=== PATIENT | male | born 1990 | race Caucasian/White ===

== ENCOUNTER 2021-10-07 15:20 | Emergency (ER) | payer BC, MEDICAID ==
[~2021-10-07] VITALS: Ht 170.2 cm; Wt 80.0 kg
[2021-10-07] MEDS ORDERED: ASPI-1153 PO (15:59)
[2021-10-07 18:32] VITALS: BP 126/74
== END 2021-10-07 18:34 | disposition home or self-care (01) ==
LOC: ER 15:20
DX: J06.9 Acute upper respiratory infection, unspecified (principal); Z20.822 Contact with and (suspected) exposure to COVID-19
CPT/HCPCS: 87426; 99283